=== PATIENT | male | born 1960 | race Caucasian/White ===

== ENCOUNTER → 2022-08-21 14:11 | Outpatient (BNVA) | payer OTHER, SELFPAY | PROVIDERS: Family Provider Nurse Practitioner; PCP Family Medicine; Referring Provider Family Medicine; Visit Provider Specialist | DX: R20.0 Anesthesia of skin (principal); R20.2 Paresthesia of skin | CPT/HCPCS: 95908; 95909 ==

== ENCOUNTER → 2022-10-17 10:19 | Outpatient (BNVA) | payer OTHER, SELFPAY | PROVIDERS: Family Provider Nurse Practitioner; PCP Family Medicine; Referring Provider Family Medicine; Visit Provider Specialist | DX: G56.22 Lesion of ulnar nerve, left upper limb (principal); M62.89 Other specified disorders of muscle | CPT/HCPCS: 95860; 99202 ==

== ENCOUNTER → 2024-02-03 14:16 | Outpatient (BNVA) | payer OTHER, SELFPAY | PROVIDERS: Family Provider Nurse Practitioner; PCP Family Medicine; Referring Provider Family Medicine; Visit Provider Internal Medicine | DX: R07.9 Chest pain, unspecified (principal) | CPT/HCPCS: 93005; 99214 ==

== ENCOUNTER 2024-02-10 08:33 | Outpatient (CLI) | payer OTHER, SELFPAY ==
[2024-02-10 08:34] VITALS: BMI 41.3
--- NOTE | 2024-02-10 08:47 | ECG_ITS ---
[facility] Test Date: 2024-02-10 Pat Name: Armando Wong Department: Room: Gender: Male Dean For Student Affairs: Chelsea Carter : 1960 Requested By: Shmuel Montoya Order Number: [id number] Yary MD: Shmuel Montoya M.D. Interpretive Statements NAME OF STUDY: LEXISCAN SESTAMIBI STRESS TEST INDICATION: [CP, ] Procedure: At the baseline, the blood pressure was 160/90 mmHg with a heart rate of 63 bpm. The electrocardiogram showed normal sinus rhythm, normal axis with normal ST and T's. The Lexiscan was infused over a period of 20 seconds. A total of 0.4 mg of Lexiscan was infused. The stress phase was continued for a total of 5 minutes. Heart rate was at the end of stress phase was 69 bpm and a blood pressure of 145/94 mmHg. The EKG at the peak infusion revealed normal sinus rhythm with no significant ST-T wave changes. Sestamibi was injected 20 seconds after the Lexiscan infusion. Blood pressure at the end of recovery phase was 150/91 mmHg with a heart rate of 67 bpm. Conclusion: 1. Normal EKG response to Lexiscan infusion 2. No Lexiscan induced chest pain or cardiac arrhythmia. 3. Normal blood pressure and heart rate response. 4. Sestamibi/sestamibi perfusion scan pending; see separate report. Electronically Signed On 02-19-2024 12:28:09 CDT by Shmuel Montoya M.D. [id number]
--- NOTE | 2024-02-10 08:48 | NMCV_ITS ---
NM martine perf SPECT r/s* [id number] Armando Wong Age: 63 Gender: M : 1960 Exam Date: 02/10/2024 08:48 Ordering Phys: Shmuel Montoya M.D ([email or web address]) Technologist: GABRIELA Carmona Exam Location: [facility] Indications: CHEST PAIN STRESS TEST [facility] IMAGE PROTOCOL Rest/Stress 1 Lexiscan Day Radiopharmaceutical Dose (mCi) Administration Site Administered by Rest: Tc-99m 10.6 IV GABRIELA Stewart Sestamibi Stress:Tc-99m 33.0 IV GABRIELA Stewart Sestamibi Rest: 10-Feb-2024 60 Discovery 630 Stress: 10-Feb-2024 30 Discovery 630 0.4mg Lexiscan. Images obtained in supine and prone position. SPECT RESULTS Technical Quality: Excellent Raw Data Analysis: Normal Image Corrections: No attenuation or motion correction applied Summed Stress Score: 3 Summed Rest Score: 1 Summed Difference Score: 2 PERFUSION FINDINGS There is a small sized, fixed perfusion defect seen in apical lateral wall. 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 No evidence of ischemia seen. FUNCTIONAL RESULTS (calculated via Gated SPECT) Stress Image LV EF (%): 65 Stress EDV (mL):107 TID: 0.93 Stress ESV (mL):37 FUNCTIONAL FINDINGS: There is normal left ventricular systolic function. IMPRESSIONS 1. 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 2. LV systolic function is normal Shmuel Montoya MD (Electronically Signed) Final Date: 14 February 2024 09:38 S
[2024-02-10] MEDS: regadenoson 0.4 Mg/5 ml Syringe 0.400000000000000022 MG IVP (10:14)
[2024-02-10 10:23] VITALS: BP 150/91; PULSE 67
== END 2024-02-10 08:34 | disposition home or self-care (01) ==
LOC: CDL 08:34
PROVIDERS: Family Provider Nurse Practitioner; PCP Family Medicine; Visit Provider Internal Medicine
DX: R07.9 Chest pain, unspecified (principal)
CPT/HCPCS: 36415; 78452; 93017; 96374; A9500; J2785

== ENCOUNTER 2024-02-20 06:55 | Outpatient (CLI) | payer OTHER, SELFPAY ==
--- NOTE | 2024-02-20 06:30 | USCV_ITS ---
Armando Wong Age: 63 Gender: M : 1960 Exam Date: 02/20/2024 07:44 Ordering Phys: Shmuel Montoya M.D ([email or web address]) Technologist: Santos Wilder Exam Location: [facility] Indication: sob BP: 142 / 85 HR: 65 Rhythm: Sinus Technical Quality: Adequate MEASUREMENTS (Male / Female) Normal Values 2D ECHO LV Ejection Fraction MOD 2C 61.0 % LV Ejection Fraction 2C AL 61.6 % LA Diameter 4.3 cm RA Systolic Volume 4C AL 32.5 ml RA Systolic Volume 4C MOD 31.6 ml LA Sys Volume AL 41.2 cm cubed LA Sys Volume Index AL 16.1 cm cubed/m squared Aorta at Sinotubular Diameter 3.0 cm IVC Diameter 2.1 cm M-MODE LA Ao Ratio MM 0.9 AV Cusp Separation MM 2.4 cm DOPPLER AV Peak Velocity 108.3 cm/s LVOT Peak Velocity 76.0 cm/s MV Peak Velocity 98.0 cm/s MV Area PHT 5.7 cm squared Mitral E to A Ratio 0.9 TV Peak Velocity 215.0 cm/s TR Peak Velocity 239.0 cm/s TR Peak Gradient 22.8 mmHg TR Mean Velocity 168.0 cm/s TR Mean Gradient 13.5 mmHg TR Velocity Time Integral 66.5 cm PV Peak Velocity 90.7 cm/s RV Ejection Time 0.3 s FINDINGS Left Ventricle Left ventricle is normal in size. LV systolic function is normal with EF of 55 to 60%. No regional wall motion abnormalities are seen. Right Ventricle Normal in size and function Right Atrium Normal in size Left Atrium Normal in size Mitral Valve Structurally normal mitral valve. Trace mitral regurgitation. Aortic Valve Structurally normal aortic valve. No significant stenosis or regurgitation. Tricuspid Valve Pulmonary artery systolic pressure is normal. Mild tricuspid regurgitation. Pulmonic Valve Trace pulmonic regurgitation. Pericardium Normal Aorta Normal in size IVC Not well visualized CONCLUSIONS LV systolic function is normal with EF of 55 to 60%. Trace mitral regurgitation Mild tricuspid regurgitation. Trace pulmonic regurgitation No comparison studies are available Shmuel Montoya MD (Electronically Signed) Final Date: 06 Mar 2024 20:35 S
== END 2024-02-20 06:56 | disposition home or self-care (01) ==
LOC: RAD 06:55
PROVIDERS: Family Provider Nurse Practitioner; PCP Family Medicine; Visit Provider Internal Medicine
DX: R06.02 Shortness of breath (principal)
CPT/HCPCS: 93306

== ENCOUNTER → 2024-04-07 14:47 | Outpatient (BNVA) | payer OTHER, SELFPAY | PROVIDERS: Family Provider Nurse Practitioner; PCP Family Medicine; Visit Provider Internal Medicine | DX: R06.09 Other forms of dyspnea (principal); I10 Essential (primary) hypertension; Z87.891 Personal history of nicotine dependence | CPT/HCPCS: 99214 ==

== ENCOUNTER → 2024-09-23 07:39 | Outpatient (BNVA) | payer OTHER, SELFPAY | PROVIDERS: Family Provider Nurse Practitioner; PCP Family Medicine; Visit Provider Student in an Organized Health Care Education/Training Program | DX: K82.9 Disease of gallbladder, unspecified (principal); R10.13 Epigastric pain; K29.70 Gastritis, unspecified, without bleeding | CPT/HCPCS: 99204 ==

== ENCOUNTER 2024-11-09 09:07 | Day surgery (SDC) | payer OTHER, SELFPAY ==
[2024-11-09 09:26] VITALS: BP 144/110; PULSE 73; RESP 18; O2SAT 95; BMI 40.2
--- NOTE | 2024-11-09 10:50 | W.PM.OPSUD ---
Surgery/Procedure H&P Update DATE OF PROCEDURE: November 09, 2024 DATE H&P PERFORMED: 09/23/24 H&P UPDATE INFORMATION: I have reviewed H&P completed within last 30 days, I have examined patient prior to procedure and No changes to prior documentation PLANNED PROCEDURE: Operation Date: 11/09/24 10:30 Proposed Procedures p EGD 00152, R10.13. K29.70(Not Applicable) - Nathan David MD
--- NOTE | 2024-11-09 10:51 | W.PM.OPSFHP ---
Same Day Surgery H&P Indication for Procedure/HPI DATE OF PROCEDURE: November 09, 2024 CHIEF COMPLAINT/INDICATIONFOR SURGICAL PROCEDURE: abdominal pain PREOP DIAGNOSIS: heartburn PLANNED PROCEDURE: Operation Date: 11/09/24 10:30 Proposed Procedures p EGD 71604, R10.13. K29.70(Not Applicable) - Nathan David MD Medications/Allergies* Home Medications Medication Instructions Recorded Confirmed Type cyclobenzaprine 10 mg tablet 10 mg PO TID PRN Muscle Spasm 08/21/22 11/09/24 History albuterol sulfate 90 mcg/actuation 2 puff inhalation Q6H PRN 02/03/24 11/09/24 History aerosol inhaler Shortness Of Breath gabapentin 300 mg capsule 600 mg PO BID PRN Insomnia 02/03/24 11/09/24 History lisinopril 40 mg tablet 40 mg PO DAILY 02/03/24 11/09/24 History loratadine 10 mg tablet 10 mg PO DAILY 02/03/24 11/09/24 History aspirin 81 mg tablet,delayed 81 mg PO DAILY 09/23/24 11/09/24 History release Allergies/Adverse Reactions Allergy/AdvReac Type Severity Reaction Status Date / Time No Known Allergies Allergy Verified 09/23/24 07:55 Pertinent History/Comorbid Conditions* Family History (Updated 09/23/24 @ 08:01 by TYSHAWN Ferrell) Diabetes Mother Heart disease Father Cancer Father brain tumor, breast cancer Social History Smoking and tobacco/nicotine status: former use of tobacco/nicotine Alcohol intake: never Substance/Drug Use: never Pertinent Exam Findings oriented x 3, regular rate & rhythm and procedure specific exam findings abdomen soft, nt, nd Recommendations Surgery/Procedure today Coding Level of Care Code Acute Code for Chg Fwd
[2024-11-09 11:58] VITALS: BP 127/83; PULSE 68; RESP 18; TEMP 36.2; O2SAT 95
[2024-11-09 12:11] VITALS: BP 152/98; PULSE 62; RESP 18; O2SAT 98
--- NOTE | 2024-11-09 12:38 | ANES.PREANE2 ---
Pre-Anesthetic Assessment Height/Weight: Height 1.83 m Weight 134.717 kg Temp Pulse Resp BP Pulse Ox O2 Del Method 97.1 F L 62 18 152/98 98 Room Air 11/09/24 11:58 11/09/24 12:11 11/09/24 12:11 11/09/24 12:11 11/09/24 12:11 11/09/24 12:11 Preop Diagnosis: heartburn Operation Date: 11/09/24 10:30 Proposed Procedures p EGD 42505, R10.13. K29.70(Not Applicable) - Nathan David MD Familial anesthetic complications: postop delirium Was Beta Jong taken within 24 hours: N/A Was Clonidine taken within 24 hours: N/A Last intake: Intake Last Liquid Date 11/08/24 Last Liquid Time 21:00 Last Solid Date 11/08/24 Last Solid Time 21:00 Social No alcohol and No tobacco Exam alert, oriented x 3, clear to auscultation bilaterally and regular rate & rhythm Airway Submandibular: within normal limits Cervical ROM: within normal limits Mallampati: Class II Dentition: chipped CV/HEM Hypertension GI Gastroesophageal Reflux Disease Metabolic Morbid Obesity Anesthetic Plan ASA status: 3 Anesthesia: MAC Medications/Allergies Home Medications Medication Instructions Recorded Confirmed Last Taken Type cyclobenzaprine 10 mg tablet 10 mg PO TID PRN Muscle Spasm 08/21/22 11/09/24 10/25/24 History albuterol sulfate 90 mcg/actuation 2 puff inhalation Q6H PRN 02/03/24 11/09/24 Unknown History aerosol inhaler Shortness Of Breath gabapentin 300 mg capsule 600 mg PO BID PRN Insomnia 02/03/24 11/09/24 1 Week Ago History ~10/28/24 lisinopril 40 mg tablet 40 mg PO DAILY 02/03/24 11/09/24 11/08/24 History loratadine 10 mg tablet 10 mg PO DAILY 02/03/24 11/09/24 Unknown History aspirin 81 mg tablet,delayed 81 mg PO DAILY 09/23/24 11/09/24 11/08/24 History release pantoprazole 40 mg tablet,delayed 40 mg PO DAILY 6 weeks #42 tabs 11/09/24 Unknown Rx release (Protonix) Allergies Allergy/AdvReac Type Severity Reaction Status Date / Time No Known Allergies Allergy Verified 09/23/24 07:55 PFSH Anesthesia Family History (Updated 09/23/24 @ 08:01 by TYSHAWN Ferrell) Mother Diabetes Father Heart disease Cancer brain tumor, breast cancer Social History Smoking and tobacco/nicotine status: former use of tobacco/nicotine Alcohol intake: never Substance/Drug Use: never Data Anesthesia Cardiac Studies: Echocardiogram 02/20/24 Sestamibi Stress Test (Cardiology) 02/10/24
--- NOTE | 2024-11-09 13:53 | ANE.PACU2 ---
Inpatient post-anesthesia follow up: Airway intact: Yes Vital signs: Temperature 97.1 F Pulse Rate 62 Respiratory Rate 18 Blood Pressure 152/98 Pulse Oximetry 98 Oxygen Delivery Me thod Room Air Oxygen Flow Rate Fraction of Inspir ed Oxygen Hydration adequate: Yes Nausea and vomiting: No Pain level: 2 Mental status: Baseline
== END 2024-11-09 12:22 | disposition home or self-care (01) ==
PROVIDERS: PCP Family Medicine; Visit Provider Student in an Organized Health Care Education/Training Program
PROC: 0DJ08ZZ Inspection of Upper Intestinal Tract, Via Natural or Artificial Opening Endoscopic (ICD-10-PCS; principal; 2024-11-09 10:30)
DX: R13.10 Dysphagia, unspecified (principal); K29.70 Gastritis, unspecified, without bleeding; K29.50 Unspecified chronic gastritis without bleeding; K29.80 Duodenitis without bleeding; I10 Essential (primary) hypertension; K21.9 Gastro-esophageal reflux disease without esophagitis; E66.01 Morbid (severe) obesity due to excess calories; Z68.43 Body mass index [BMI] 50.0-59.9, adult; Z87.891 Personal history of nicotine dependence
CPT/HCPCS: 43239; 88305; 88342; J2704

== ENCOUNTER → 2024-11-18 09:02 | Outpatient (BNVA) | payer OTHER, SELFPAY | PROVIDERS: PCP Family Medicine; Visit Provider Student in an Organized Health Care Education/Training Program | DX: Z09 Encounter for follow-up examination after completed treatment for conditions other than malignant neoplasm (principal) | CPT/HCPCS: 99204; 99213 ==

== ENCOUNTER → 2025-04-06 13:12 | Outpatient (BNVA) | payer OTHER, SELFPAY | PROVIDERS: PCP Family Medicine; Visit Provider Internal Medicine | DX: I10 Essential (primary) hypertension (principal); Z79.82 Long term (current) use of aspirin; Z87.891 Personal history of nicotine dependence | CPT/HCPCS: 99213 ==

== ENCOUNTER → 2025-10-17 10:53 | Outpatient (BNVA) | payer OTHER, SELFPAY | PROVIDERS: PCP Family Medicine; Visit Provider Nurse Practitioner Family | DX: L72.0 Epidermal cyst (principal); L82.1 Other seborrheic keratosis; L81.4 Other melanin hyperpigmentation; L57.8 Other skin changes due to chronic exposure to nonionizing radiation; D18.01 Hemangioma of skin and subcutaneous tissue | CPT/HCPCS: 99203 ==